=== PATIENT | female | born 2000 | race Two or more races ===

== ENCOUNTER 2019-05-27 20:51 | Emergency (ER) | payer MEDICAID ==
[~2019-05-27] VITALS: Ht 160 cm; Wt 68.2 kg
[2019-05-27] MEDS ORDERED: famotidine/PF 10 mg/ml inj IV ONE (21:45)
[2019-05-27] MEDS ORDERED: pantoprazole 40 MG vial IV ONE (21:45)
[2019-05-27] MEDS ORDERED: normal saline 1000ML IV soln IVB ONE (21:45)
--- NOTE | 2019-05-27 22:03 | NUR ---
pt up to br to give ua
[2019-05-27 22:12] LABS: BASOPHILS % (AUTO) 0.4 % (0-1); EOSINOPHILS # (AUTO) 0.1 X10'3 (0-0.9); EOSINOPHILS % (AUTO) 0.8 % (0-6); HEMATOCRIT 40.8 % (35.0-45.0); HEMOGLOBIN 13.3 g/dl (12.0-16.0); LYMPHOCYTES # (AUTO) 3.1 X10'3 (1.1-4.8); LYMPHOCYTES % (AUTO) 28.4 % (21-51); MEAN CORPUSCULAR HEMOGLOBIN 26.2 PG (27.0-31.0); MEAN CORPUSCULAR HGB CONC 32.7 g/dL (33.0-36.5); MEAN CORPUSCULAR VOLUME 80.2 FL (78-98); MEAN PLATELET VOLUME 8.4 FL (7.4-10.4); MONOCYTES # (AUTO) 0.7 X10'3 (0-0.9); MONOCYTES % (AUTO) 6.5 % (2-12); NEUTROPHILS % (AUTO) 63.9 % (42-75); PLATELET COUNT 421 X10'3 (140-440); RED BLOOD COUNT 5.09 X10'6 (4.20-5.60)
[2019-05-27 22:22] LABS: ALANINE AMINOTRANSFERASE 18 U/L (12-78); ALBUMIN 4.1 G/DL (3.4-5.0); ALBUMIN/GLOBULIN RATIO 1.2 (1.1-1.5); ALKALINE PHOSPHATASE 71 IU/L (20-180); ANION GAP 10 (8-16); ASPARTATE AMINO TRANSFERASE 11 U/L (10-37); BILIRUBIN,TOTAL 0.3 MG/DL (0.1-1.0); BLOOD UREA NITROGEN 5 MG/DL (7-18); BUN/CREATININE RATIO 7.6 (6.6-38.0); CALCIUM 8.5 MG/DL (8.5-10.1); CHLORIDE 104 MMOL/L (99-107); CREATININE 0.66 MG/DL (0.40-0.90); GLUCOSE 95 MG/DL (70-104); POTASSIUM 3.2 MMOL/L (3.5-5.1); SODIUM 142 MMOL/L (135-145); TOTAL CARBON DIOXIDE 27.6 MMOL/L (24-32); TOTAL PROTEIN 7.6 G/DL (6.4-8.2); eGFR > 90 ML/MIN
[2019-05-27 22:24] LABS: D-DIMER < 0.19 MG/L FEU (0-0.50)
[2019-05-27 22:39] LABS: COLOR,URINE YELLOW (Yellow); GLUCOSE, URINE NEGATIVE (Neg); KETONES,URINE TRACE mg/dl (Neg); LEUKOCYTE ESTERASE ,URINE SMALL (Neg); NITRITES, URINE POSITIVE (Neg); OCCULT BLOOD,URINE TRACE-INTACT (Neg); PROTEIN,URINE NEGATIVE (Neg); UROBILINOGEN,URINE 0.2 E.U/dL (0.2-1.0)
[2019-05-27 22:45] VITALS: BP 115/75
[2019-05-27 22:45] LABS: URINE HCG NEGATIVE (NEG)
[2019-05-27 23:19] LABS: UA COLLECTION TYPE CLN CATCH MIDSTREAM
[2019-05-27 23:21] LABS: CLARITY,URINE CLOUDY (Clear)
[2019-05-27 23:23] LABS: WBC,URINE 0-4 /HPF (0-4)
[2019-05-27 23:24] LABS: BACTERIA,URINE 4+ /HPF (Neg); MUCUS STRANDS MANY /LPF (Neg); RBC,URINE NONE SEEN /HPF (0-2); SQUAMOUS EPITHELIAL CELL,UR MODERATE /LPF (FEW)
== END 2019-05-27 23:37 | disposition home or self-care (01) ==
LOC: ER 20:53
DX: K29.00 Acute gastritis without bleeding (principal); R00.2 Palpitations; R94.6 Abnormal results of thyroid function studies; R00.0 Tachycardia, unspecified; Z88.0 Allergy status to penicillin; Z91.013 Allergy to seafood
CPT/HCPCS: 36415; 71045; 80053; 81001; 81025; 84439; 84443; 84484; 85025; 85379; 87077; 87088; 87186; 93005; 96361; 96374; 96375; 99284; C9113; J3490; J7030

== ENCOUNTER 2024-10-12 13:21 | Emergency (ER) | payer MEDICAID ==
[~2024-10-12] VITALS: Ht 160 cm; Wt 84.6 kg
[2024-10-12 13:29] VITALS: BP 111/68; PULSE 89; RESP 15; O2SAT 100
--- NOTE | 2024-10-12 14:19 | Physician Documentation ---
History of Present Illness ~ Chief Complaint: Puncture Wound Stated Complaint: R FOOT PUNCTURE WOUND Time Seen by MD: 14:25 HPI This 23-year-old female presents with a wound to the bottom of her right foot sustained approximately 20 minutes prior to arrival after stepping on a portion of a tree stump that is stuck through her shoe and into her foot, patient estimates puncture of approximately 1/2 inch deep into her foot. Patient reports no history of immune compromise, diabetes, or blood clotting disorder. Medication Reconciliation Allergies: Uncoded Allergies: IODINE IN SHELLFISH (Allergy, Severe, 04/30/15) PENICILLIN (Allergy, Severe, 04/30/15) Scheduled Ciprofloxacin HCl (Ciprofloxacin HCl), 1 TAB PO Q12H Past Medical History Past Medical History: No Pertinent History Past Surgical History: no surgical history Lives with: Family Lives In: Home Review of Systems ROS Wound to foot as stated above in the HPI, otherwise all systems are reviewed and negative. Physical Exam Vital Signs: Temperature: 97.1, Source: Temporal, Heart Rate: 89, Respiratory Rate: 15, BP: 111/68, Pulse Oximetry: 100, Weight: 84.600 Physical Exam VITALS: Reviewed and as above. GENERAL: Alert, nontoxic appearing, no apparent distress. RESPIRATORY: No increased work of breathing, no respiratory distress, speaking in full clear sentences MUSCULOSKELETAL: Right filling machine tender to palpation at location of wound otherwise nontender to palpation, brisk capillary refill, pedal pulse intact. Wound to foot probed, approximately 2 cm deep no evidence of retained foreign body SKIN: 1 cm C-shaped wound to the plantar aspect of the right forefoot, dried blood to the foot without active bleeding Procedures Procedure Note The wound to the foot was anesthetized with 4 mL of 1% lidocaine with epinephrine, achieving good anesthesia then irrigated by nursing staff and probed by myself, wound was proximally 2 cm deep and had no evidence of retained foreign body. Patient tolerated procedure well. Progress Results/Orders Results/Orders Orders - ABBY DIAZ Laceration/I&D Tray Set Up (10/12/24 14:25) Wound Care Orders (10/12/24 14:25) Foot, Complete (3vw Min) (10/12/24 14:54) Ortho Orders (10/12/24 ) Completed Orders - ABBY DIAZ Tetanus/Pertuss/Diph Acell/Pf (Boostrix (10/12/24 14:25) Lidocaine 1% W/Epi 1:100,000 (Xylocaine (10/12/24 14:25) Foot, Complete (3vw Min) (10/12/24 14:54) Vital Signs 10/12/24 10/12/24 13:29 16:59 Temp 97.1 97.1 Pulse 89 Resp 15 B/P (MAP) 111/68 Pulse Ox 100 EKG/XRAY/CT/US/VASC/MRI Bone/Soft Tissue X-Ray (Ext.) : Additional Comment CLINICAL INDICATION: Punture Wound to Foot TECHNIQUE: 3 radiographic views of the right foot were obtained. Comparison: None FINDINGS/IMPRESSION: Nondiagnostic exam due to technique of exam. Recommend repeat radiograph with improved penetration. Electronically Signed by:MARY MONGE MD Date & Time: 10/12/24 1518 Dictated by: MARY MONGE MD Dictation date and time: 10/12/24 1502 I have reviewed and agree with the radiology report. I have reviewed and interpreted the imaging as: No evidence of radiopaque retained foreign body Medical Decision Making Findings This 23-year-old female presented with a puncture wound to plantar aspect of her right foot after stepping on a sharp portion of a stump puncturing through her shoe into her foot, with a proximally 1 cm C-shaped laceration to the bottom of the foot though when probed was proximally 2 cm deep him foot without evidence of retained foreign body on exam and x-ray, x-ray did not demonstrate evidence of fracture or dislocation to the foot as well. Foot is neurovascularly intact. The wound was thoroughly irrigated and dressed by nursing staff. Tdap booster given. Differential Dx:Considerations: Include: Abrasion, Avulsion, Contusion, Laceration, Fracture, Hematoma, Neurovascular injury, Retained foreign body Departure Disposition: 01 HOME / SELF CARE / HOMELESS Impression: Primary Impression: Puncture wound Condition: Improved Discharge Instructions: Puncture Wound, [id number] Additional Instructions: Take the antibiotics as prescribed, keep the area clean dry and covered, change the dressing at least once a day or earlier if he becomes soiled. Please remove the drain after 24 hours. Please return to your choice of medical provider in two days for wound recheck. Please follow up with your primary care provider in the next few days. Please return to the emergency department for any new or wo rsening concerning symptoms. Referrals: NO PRIMARY CARE PROVIDER (PCP) Prescriptions Ciprofloxacin HCl (Ciprofloxacin HCl) 500 Mg Tab 1 TAB PO Q12H for 5 Days, #10 TAB Prov: ABBY DIAZ 10/12/24 Education Educated: Patient Educated regarding: diagnosis, treatment, prognosis, need for follow up Additional Comment Medical Screen Exam History: This 23-year-old female presents with a wound to the bottom of her right foot sustained approximately 20 minutes prior to arrival after stepping on a portion of a tree stump that is stuck through her shoe and into her foot, patient estimates puncture of approximately 1/2 inch deep into her foot. Patient reports no history of immune compromise, diabetes, or blood clotting dis order. VITALS: Reviewed and as above. GENERAL: Alert, nontoxic appearing, no apparent distress. RESPIRATORY: No increased work of breathing, no respiratory distress, speaking in full clear sentences MUSCULOSKELETAL: Right filling machine tender to palpation at location of wound otherwise nontender to palpation, brisk capillary refill, pedal pulse intact SKIN: 1 cm C-shaped wound to the plantar aspect of the right forefoot, dried blood to the foot without active bleeding MSE performed in triage and patient returned to ED lobby by nursing staff The note accurately reflects work and decisions made by me.BARBARA Cronin 10/12/24 14:19 Signature Scribe Signature: No scribe Attestation: The note accurately reflects work and decisions made by me.BARBARA Cronin 10/14/24 03:40 ABBY DIAZ Oct 12, 2024 14:19
[2024-10-12] MEDS: LIDOcaine 1% W/epiNEPHrine 1:100,000 20ml vial IJ ONE (14:50)
[2024-10-12] MEDS: TETanus/Pertussis (Acell)/Diphther VAC/PF (Tdap-Adult) 0.5ml syringe IMVAC ONE (14:50)
--- NOTE | 2024-10-12 15:21 | RADIOLOGY REPORT ---
CLINICAL INDICATION: Punture Wound to Foot TECHNIQUE: 3 radiographic views of the right foot were obtained. Comparison: None FINDINGS/IMPRESSION: Nondiagnostic exam due to technique of exam. Recommend repeat radiograph with improved penetration.
[2024-10-12] MEDS ORDERED: CIPR-202 PO (16:34)
[2024-10-12 16:59] VITALS: TEMP 97.1
== END 2024-10-12 17:01 | disposition home or self-care (01) ==
LOC: ER 13:21
DX: S91.331A Puncture wound without foreign body, right foot, initial encounter (principal); E11.9 Type 2 diabetes mellitus without complications; W22.8XXA Striking against or struck by other objects, initial encounter; Y93.89 Activity, other specified; Y92.89 Other specified places as the place of occurrence of the external cause; Y99.8 Other external cause status
CPT/HCPCS: 73630; 90471; 90715; 99283; A6407; A6258; A6449